=== PATIENT | male | born 1950 | race Asian ===

== ENCOUNTER 2021-06-06 21:09 | Inpatient (IN) | payer MEDICARE, OTHER ==
[~2021-06-06] VITALS: Ht 160 cm; Wt 59.4 kg
--- NOTE | 2021-06-06 21:18 | NUR ---
BIBRA 37 AND THE FOR C/O IMPLANT DEFIBRILATOR WENT OFF TWICE 1 HR AND 20 MIN CLIPPER MACHINE. DENIED CP OR SOB. PATIENT ALERT AND ORIETNED X3. AMBULATORY WITH NON LABORED BREATHING IN BED 11 ON MONITOR.
--- NOTE | 2021-06-06 21:28 | NUR ---
BLOOD COLLECTED AND SENT TO LAB
--- NOTE | 2021-06-06 21:28 | NUR ---
@ BEDSIDE FOR EVAL
[2021-06-06 21:45] LABS: BASOPHILS % (AUTO) 0.6 % (0.0-2.0); EOSINOPHILS % (AUTO) 2.6 % (0.0-6.0); HEMATOCRIT 41 % (39-51); HEMOGLOBIN 13.6 g/dL (13.5-17.5); LYMPHOCYTES # (AUTO) 1.8 K/uL (0.8-4.8); LYMPHOCYTES % (AUTO) 29.2 % (20.0-44.0); MEAN CORPUSCULAR HGB CONC 33 g/dl (31.0-36.0); MEAN CORPUSCULAR VOLUME 92 fL (80-96); MONOCYTES % (AUTO) 16.5 % (2.0-12.0); NEUTROPHILS # (AUTO) 3.2 K/uL (1.8-8.9); NEUTROPHILS % (AUTO) 51.1 % (43.0-81.0); PLATELET COUNT (AUTO) 184 K/uL (150-450); RED BLOOD CELL COUNT(AUTO) 4.43 MIL/uL (4.5-6.0); WHITE BLOOD COUNT (AUTO) 6.3 K/uL (4.3-11.0)
[2021-06-06 22:04] LABS: CALCIUM, SERUM 8.4 mg/dL (8.5-10.1); CARBON DIOXIDE 28 mmol/L (21-32); CHLORIDE 103 mmol/L (98-107); CREATININE 1.8 mg/dL (0.6-1.3); GLUCOSE 99 mg/dL (74-106); POTASSIUM 3.3 mmol/L (3.5-5.1); SODIUM SERUM 138 mmol/L (136-145); UREA NITROGEN, BLOOD 22 mg/dL (7-18)
--- NOTE | 2021-06-06 22:15 | NUR ---
RYLAN DONE AND SENT TO LAB
--- NOTE | 2021-06-06 22:19 | NUR ---
CONTACTED [employer] [phone] THEY REQUIRE A METER [employer]OP SUPERINTENDENT ORDER TO INTERROGATE THE ICD. CONTACT [facility] FOR INTERROGATION [phone]
[2021-06-06 23:14] LABS: EOSINOPHILS % (MANUAL) 2 % (0-4); LYMPHOCYTES % (MANUAL) 19 % (16-48); MONOCYTES % (MANUAL) 13 % (0-11.0); NEUTROPHILS % (MANUAL) 66 (42-76)
[2021-06-07] MEDS ORDERED: MAGNESIUM HYDROXIDE 30 ML UDC PO PRN (02:30)
[2021-06-07] MEDS ORDERED: ACETAMINOPHEN 325 MG TABLET PO PRN (02:30)
[2021-06-07] MEDS ORDERED: ONDANSETRON HCL/PF 4 MG/2 ML VIAL IVP PRN (02:30)
[2021-06-07] MEDS ORDERED: Z GUARD REMEDY 4 OZ OINT TP PRN (02:30)
[2021-06-07] MEDS ORDERED: MAG HYDROX/AL HYDROX/SIMETH 30 ML UDC PO PRN (02:30)
[2021-06-07] MEDS ORDERED: IV NS 0.9% 1,000 ML IV ONE (02:30)
[2021-06-07] MEDS ORDERED: ZOLPIDEM TARTRATE 5 MG TABLET PO PRN (02:30)
--- NOTE | 2021-06-07 03:13 | NUR ---
REPORT GIVEN TO CASIMIRO MCPHERSON.
[2021-06-07 03:20] VITALS: BP 156/90
[2021-06-07] MEDS ORDERED: PANT40TA49 PO (03:53)
[2021-06-07] MEDS ORDERED: MULT-1119 PO (03:53)
[2021-06-07] MEDS ORDERED: METO25TA6 PO (03:53)
[2021-06-07] MEDS ORDERED: LOSA25TA27 PO (03:53)
[2021-06-07] MEDS ORDERED: AMIO200T5 PO (03:53)
[2021-06-07] MEDS ORDERED: DABI150C PO (03:53)
[2021-06-07] MEDS ORDERED: HYDR12.55 PO (03:53)
[2021-06-07] MEDS ORDERED: TENO25TA PO (03:53)
[2021-06-07] MEDS ORDERED: METF-881 PO (03:54)
--- NOTE | 2021-06-07 04:12 | NUR ---
VICE PRESIDENT FOR PHILANTHROPY NOTES PT ARRIVED TO UNIT VIA GURNEY PT ABLE TO AMBULATE TO BED PT NOTED WITH STEADY GAIT. PT A/O X4 ONLY SPEAKS ICELANDIC PT AT BEDSIDE ABLE TO TRANSLATE.PT NOTED WITH LAC #20G PATENT INTACT FLUSHING WELL. PT SKIN DRY WARM AND INTACT NO DISCOLORATION NOTED. PT ORIENTED TO ROOM AND UNIT CALL LIGHT WITHIN REACH. TABLE WITHIN REACH. PT BROUGHT MEDICATIONS WILL KEEP THEM ALL MEDICATIONS PUT IN MED RECON FOR DR REVIEW.
[2021-06-07 06:04] VITALS: BP 152/90
--- NOTE | 2021-06-07 06:37 | NUR ---
SHORT ORDER FRY COOK NOTES PT ASLEEP IN BED EASILY WOKEN UP. ON NS RUNNING AT 100ML/HR TOLERATING WELL. ALL NEEDS MET. CALL LIGHT WITHIN REACH. TABLE WITHIN REACH. ON TELE MONITOR SHOWING V PACING HR IN THE 60S WILL ENDORSE CARE TO DAY SHIFT NURSE.
[2021-06-07 08:00] VITALS: BP 133/85
--- NOTE | 2021-06-07 08:09 | NUR ---
RN OPENING NOTE PATIENT IN BED RESTING AWAKE, A/O X4. NO S/S OF PAIN NOTED AT THIS TIME. ON ROOM AIR, NO DISTRESS OR SHORTNESS OF BREATH NOTED. IV ACCESS L AC #20G - NS @ 75ML/HR, INTACT, PATENT AND FLUSHING WELL. FALL AND SAFETY MEASURES IN PLACE, BED ALARM ON. BED IN LOW AND LOCK POSITION, CALL LIGHT AND TABLE WITHIN EASY REACH, SIDE RAILS UP X2. WILL CONTINUE TO MONITOR.
[2021-06-07] MEDS: AMIODARONE HCL 200 MG TABLET PO SCH ×3 (10:30→17:14)
[2021-06-07] MEDS: PANTOPRAZOLE 40 MG TABLET.DR PO SCH ×2 (10:30→10:59)
[2021-06-07] MEDS: METOPROLOL TARTRATE 25 MG TABLET PO SCH ×3 (10:30→17:13)
[2021-06-07] MEDS: LOSARTAN POTASSIUM 25 MG TABLET PO SCH ×4 (10:30→17:14)
[2021-06-07] MEDS ORDERED: Medication Not On Formulary EA (Tenofovir Alafenamide Fumarate (Vemlidy) 25 MG) PO SCH (10:30)
[2021-06-07] MEDS: POTASSIUM CHLORIDE 20 MEQ TAB.PRT.SR PO SCH ×3 (10:56→13:30)
[2021-06-07] MEDS: DABIGATRAN ETEXILATE MESYLATE 150 MG CAPSULE PO SCH ×2 (10:58→17:12)
--- NOTE | 2021-06-07 11:00 | NUR ---
RN NOTE PATIENT REFUSED TO TAKE HIS MORNING MEDICATIONS, IS AT BED SIDE AND STATED THAT SHE GAVE PATIENT HIS MORNING MEDICATIONS. PATIENT ONLY TOOK DABIGATRAN AND POTASSIUM PILL. PATIENT BP: 133/85 AND P:60. CHARGE NURSE AWARE. Addendum: 06/07/21 at 1154 by Meera Yancey RN WAS EDUCATED NOT TO GIVE HOME MEDS HER SELF, WHILE PATIENT IS HOSPITALIZE NURSE WILL BE THE ONE TO GIVE MEDICATIONS. WAS ASK TO PLEASE TAKE HOME MEDICATIONS HOME.
[2021-06-07 11:03] LABS: CALCIUM, SERUM 8.7 mg/dL (8.5-10.1); CARBON DIOXIDE 23 mmol/L (21-32); CHLORIDE 102 mmol/L (98-107); CREATININE 1.7 mg/dL (0.6-1.3); GLUCOSE 171 mg/dL (74-106); POTASSIUM 3.2 mmol/L (3.5-5.1); SODIUM SERUM 140 mmol/L (136-145); UREA NITROGEN, BLOOD 26 mg/dL (7-18)
[2021-06-07 11:09] LABS: ALANINE AMINOTRANSFERASE 34 U/L (12-78); ALBUMIN 3.5 g/dL (3.4-5.0); ALKALINE PHOSPHATASE 81 U/L (46-116); ASPARTATE AMINOTRANSFERASE 26 U/L (15-37); BILIRUBIN,TOTAL 1.1 mg/dL (0.2-1.0); PHOSPHORUS 3.4 mg/dL (2.5-4.9); TOTAL PROTEIN, SERUM 7.1 g/dL (6.4-8.2)
[2021-06-07 11:34] VITALS: BP 148/86
[2021-06-07 11:37] LABS: BASOPHILS # (AUTO) 0.1 K/uL (0.0-0.2); BASOPHILS % (AUTO) 0.8 % (0.0-2.0); EOSINOPHILS % (AUTO) 1.4 % (0.0-6.0); HEMATOCRIT 44 % (39-51); HEMOGLOBIN 14.5 g/dL (13.5-17.5); LYMPHOCYTES # (AUTO) 1.9 K/uL (0.8-4.8); LYMPHOCYTES % (AUTO) 26.3 % (20.0-44.0); MEAN CORPUSCULAR HGB CONC 33 g/dl (31.0-36.0); MEAN CORPUSCULAR VOLUME 94 fL (80-96); MONOCYTES # (AUTO) 0.7 K/uL (0.1-1.30); MONOCYTES % (AUTO) 9.4 % (2.0-12.0); NEUTROPHILS # (AUTO) 4.6 K/uL (1.8-8.9); NEUTROPHILS % (AUTO) 62.1 % (43.0-81.0); PLATELET COUNT (AUTO) 195 K/uL (150-450); RED BLOOD CELL COUNT(AUTO) 4.72 MIL/uL (4.5-6.0); WHITE BLOOD COUNT (AUTO) 7.4 K/uL (4.3-11.0)
[2021-06-07 16:00] VITALS: BP 147/85
[2021-06-07] MEDS ORDERED: ONDA4VIA23 IVP (16:15)
[2021-06-07] MEDS ORDERED: ACET325T53 PO (16:15)
[2021-06-07] MEDS ORDERED: MAG30ORA PO (16:15)
--- NOTE | 2021-06-07 18:56 | NUR ---
RN CLOSING NOTE PATIENT IN BED RESTING AWAKE, A/O X4. NO S/S OF PAIN NOTED AT THIS TIME. ON ROOM AIR, NO DISTRESS OR SHORTNESS OF BREATH NOTED. IV ACCESS L AC #20G, INTACT, PATENT AND FLUSHING WELL. 1700 SCHEDULE MEDICATIONS GIVEN. PATIENT IS GOING TO BE TRANSFER TO [facility], TO [address], [facility] WILL REFRACTORY BRICKLAYER PATIENT AT 8:30PM. FALL AND SAFETY MEASURES IN PLACE, BED ALARM ON. TO BED IN LOW AND LOCK POSITION, CALL LIGHT AND TABLE WITHIN EASY REACH, SIDE RAILS UP X2. WILL ENDORSE TO FURNITURE FINISHER.
--- NOTE | 2021-06-07 20:18 | NUR ---
Patients 2001 BP was 184/98 and said his heart felt like it was beating weird. On the monitor his rhythm was A-pacing at 60 with occasional PVCs. Contacted on-call Dr. Alek francis to recheck BP manually and if above 160/90 to give hydralazine 25mg PO once now prior to 2030 transfer. Retook B/P 179/90 will give medication as per order.
[2021-06-07] MEDS ORDERED: hydrALAZINE HCL 25 MG TABLET PO ONE (20:30)
[2021-06-07 20:38] VITALS: BP 179/90
--- NOTE | 2021-06-07 22:15 | NUR ---
At 2109 patient's B/P was still 181/92 but report was given to Camille KIRKPATRICK [place] [facility] Will update once B/P goes down.
--- NOTE | 2021-06-07 22:17 | NUR ---
AT 2130 patient states he is feeling better and B/P went down to 167/92. [place] [facility] [place] left via ambulance to [facility] at 2144. VS 167/92, HR 60, O2 sat 98% on RA, temp 98.2, and RR 17. All belongings and all paperwork with patient/district manager in training.
== END 2021-06-07 21:40 | disposition short-term general hospital (02) | DRG 315 ==
LOC: ER 21:11 → TELE 06-07 03:01
PROVIDERS: ADMIT Registered Nurse; ATTEND Registered Nurse
DX: T82.897A Other specified complication of cardiac prosthetic devices, implants and grafts, initial encounter (principal); I42.2 Other hypertrophic cardiomyopathy; Y84.8 Other medical procedures as the cause of abnormal reaction of the patient, or of later complication, without mention of misadventure at the time of the procedure; Y92.009 Unspecified place in unspecified non-institutional (private) residence as the place of occurrence of the external cause; I10 Essential (primary) hypertension; Z20.822 Contact with and (suspected) exposure to COVID-19; Z79.84 Long term (current) use of oral hypoglycemic drugs; Z79.899 Other long term (current) drug therapy; I11.0 Hypertensive heart disease with heart failure; I50.9 Heart failure, unspecified; E86.0 Dehydration
CPT/HCPCS: 36415; 71045-TC; 80048-TC; 80053-TC; 83735-TC; 84100-TC; 84484-TC; 85025-TC; 87081-TC; C9803; G0378; J7030